=== PATIENT | female | born 1960 ===

== ENCOUNTER 2020-11-18 12:30 | Outpatient (NON) | payer OTHER, SELFPAY ==
[2020-11-18 23:32] LABS: SARS-CoV-2 RNA PCR Negative
== END 2020-11-18 12:31 ==
PROVIDERS: PCP Family Medicine; Visit Provider Family Medicine
DX: J01.90 Acute sinusitis, unspecified (principal); Z20.822 Contact with and (suspected) exposure to COVID-19
CPT/HCPCS: C9803; U0003

== ENCOUNTER 2024-09-05 10:08 | Emergency (ER) | payer OTHER, SELFPAY ==
--- NOTE | 2024-09-05 10:11 | ED.URI ---
HPI - URI/Sore Throat General Chief Complaint: Upper Respiratory Infection Stated Complaint: strep test Time Seen by Provider: 09/05/24 10:25 Source: patient, RN notes reviewed and old records reviewed Mode of arrival: ambulatory Limitations: no limitations History of Present Illness HPI Narrative: 64-year-old female presents to the [facility] complaints of sore throat, body aches for 4 days. Patient is most concerned that she might have strep. Treatments prior to arrival: aspirin Related Data Home Medications Medication Instructions Recorded Confirmed calcium 600 mg (as 1 tablet PO DAILY 09/01/20 09/12/23 carbonate)-vitamin D3 20 mcg (800 unit) tablet (Caltrate with Vitamin D3) mecobalamin (vitamin B12) 2,500 mcg PO 09/12/23 09/12/23 mcg chewable tablet Allergies Allergy/AdvReac Type Severity Reaction Status Date / Time latex Allergy Hives Verified 09/12/23 08:56 Review of Systems Review of Systems: All systems reviewed & are unremarkable except as noted in HPI and below Constitutional: Constitutional: Reports as per HPI, Reports body ache(s) and Reports fatigue ENT: Reports as per HPI and Reports sore throat Cardiovascular: Cardiovascular: Reports no additional cardiovascular complaints, Denies chest pain and Denies dyspnea Respiratory: Respiratory: Reports no additional respiratory complaints, Denies chest congestion, Denies cough and Denies dyspnea Gastrointestinal: Gastrointestinal: Reports no additional gastrointestinal complaints, Denies abdominal pain, Denies nausea and Denies vomiting Musculoskeletal: Musculoskeletal: Reports no additional musculoskeletal complaints Integumentary/Breasts: Skin/Breast: Reports system reviewed and no additional complaints, except as docu PMFSH Past Medical History Medical History Abnormal serum iron level Acute sinusitis, unspecified Adult BMI 25.0-25.9 kg/sq m B12 deficiency Breast cancer screening by mammogram Normal mammogram 07/01/2024. Colon cancer screening Fluttering sensation of heart GERD (gastroesophageal reflux disease) Heart murmur Mixed hyperlipidemia total cholesterol 249, HDL excellent at 93, triglycerides 64, LDL 135 with ratio of 2.6 on 08/10/2021 Rash and nonspecific skin eruption Thyroid nodule 1.5 x 1.2 x 0.9 cm mixed solid/ cystic heterogeneous nodule left lobe of the thyroid with recheck in 1 year by endocrinology 10/05/2020 Family History Family History Mother Patient's mother is , Onset Age: 88 Family history of Parkinson's disease Social History Social History Smoking status: Never smoker Alcohol intake: current Substance use: never Substance use type: does not use Lack of Transportation: No Lack of Food: Never True Current Housing: I Have Housing Concerned About Future Housing: No Difficulty Paying Gas/Electric Bills: No Difficulty Paying for Meds: No Currently Unemployed: No Education: High School Diploma/GED Difficulty w/ Childcare or Family Care: No Comments At the time of my signature, I reviewed and agree with the nursing past medical, surgical, social, and family history. There is no relevant family history pertinent to the patient complaint. Exam Const: General: cooperative, healthy appearing, comfortable, no acute distress, well developed, alert and well nourished Nutritional Appearance: well nourished Orientation/consciousness: patient oriented x3 Limitations: no limitations HENMT: Head: normal to inspection Ears: hearing grossly normal bilaterally, external ears normal, TM's normal bilaterally, EAC's normal, mastoids normal and no periauricular adenopathy Face/Nose/Sinus: Normal external nose present, normal facial exam and face symmetric Face and sinus: normal facial exam and face symmetric Mouth: Yes N
[2024-09-05 10:26] VITALS: BP 129/76; PULSE 87; RESP 16; TEMP 37.5; O2SAT 100
[2024-09-05 10:34] LABS: EDSTREPNEGPOS1 Negative (Negative)
== END 2024-09-05 10:47 | disposition home or self-care (01) ==
PROVIDERS: Emergency Provider Nurse Practitioner; PCP Family Medicine
DX: J06.9 Acute upper respiratory infection, unspecified (principal); B97.89 Other viral agents as the cause of diseases classified elsewhere; R09.82 Postnasal drip; E78.2 Mixed hyperlipidemia
CPT/HCPCS: 87081; 87880; 99213; G0463